=== PATIENT | male | born 2000 | race Hispanic/Latino ===

== ENCOUNTER → 2019-01-23 | Outpatient (CLI) | payer BC | END | disposition home or self-care (01) | LOC: RAH 10:26 | PROVIDERS: ATTEND Family Medicine | DX: K76.0 Fatty (change of) liver, not elsewhere classified (principal) | CPT/HCPCS: 76700 ==

== ENCOUNTER 2025-10-18 23:25 | Emergency (ER) | payer BC ==
[~2025-10-18] VITALS: Ht 180.3 cm; Wt 99.8 kg
--- NOTE | 2025-10-18 23:52 | ERN ---
General Chief Complaint: Palpitations Stated Complaint: PALPITATIONS Time Seen by MD: 23:28 History of Present Illness Initial Comments 25-year-old male no past medical history here for evaluation of palpitations. Patient states he has a palpitation before in the past however it has self resolved. Today he noticed that he is having worsening palpitations at rest right before he was going to bed thus he decided to come to the emergency room for evaluation. Patient denies any recent caffeine use. 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 Denies any recent alcohol or drug use. Allergies: Coded Allergies: Penicillins (Unverified Allergy, Unknown, 10/18/25) Past Medical History Past Medical History: No Pertinent History Past Surgical History: None Cardiovascular: (+) palpitations; (-) chest pain Review of Systems: was completed, & the rest were negative. Physical Exam Physical Exam Dictation GENERAL APPEARANCE NAD, activity normal for age, well developed/ well nourished, no cyanosis, pallor, or diaphoresis. EYES lids/conjunctiva normal. EARS/NOSE/THROAT Mucous membranes moist, nares normal, lips/teeth normal uvula midline without oral pharyngeal erythema, exudate or swelling TMs normal bilaterally. No lymphangitis/lymphedema. HEAD/NECK normocephalic atraumatic, no facial trauma, neck is supple. RESPIRATORY respiratory effort normal, speaks in full sentences, no tripod position, no accessory muscle use. Lungs clear to auscultation without rhonchi, wheezes, rales CARDIAC tachycardic rate and rhythm, no edema. ABDOMINAL Soft, ND/NT. No evidence of fluid wave. No pulsatile masses on exam, rebound tenderness, Ramirez sign or pain over Mcburney's point. MUSCLES/EXTREMITIES No abnormal range of motion, no swelling. SKIN Warm, pink and dry. No rashes, dermatoses, petechiae or lesions. NEUROLOGICAL Speech is clear and appropriate. Normal level of consciousness. Gait and coordination are normal. 5/5 strength in all extremities. PSYCH Normal mood and affect. Judgement/competence is appropriate Results Laboratory and Microbiology Lab and Micro Result Laboratory Tests Test 10/18/25 23:44 White Blood Count 8.6 K/uL (4.8-10.8) Red Blood Count 5.09 MIL/uL (4.50-6.20) Hemoglobin 14.0 g/dL (14.0-18.0) Hematocrit 41.9 % (42-54) L Mean Corpuscular Volume 82.3 fL (79-99) Mean Corpuscular Hemoglobin 27.5 pg (27.0-33.0) Mean Corpuscular Hemoglobin Concent 33.4 g/dL (32.0-36.0) Red Cell Distribution Width 12.5 % (11.0-15.5) Platelet Count 257 K/uL (130-400) Mean Platelet Volume 9.8 fL (7.5-10.5) Immature Granulocyte % (Auto) 0.3 % (0-1) Neutrophils (%) (Auto) 41.9 % (40.0-77.0) Lymphocytes (%) (Auto) 49.0 % (21.0-51.0) Monocytes (%) (Auto) 6.5 % (3.0-13.0) Eosinophils (%) (Auto) 2.1 % (0.0-8.0) Basophils (%) (Auto) 0.2 % (0.0-5.0) Neutrophils # (Auto) 3.6 K/uL (1.8-7.7) Lymphocytes # (Auto) 4.2 K/uL (1.0-4.8) Monocytes # (Auto) 0.6 K/uL (0.1-1.0) Eosinophils # (Auto) 0.18 K/uL (0.00-0.70) Basophils # (Auto) 0.02 K/uL (0.00-0.20) Absolute Immature Granulocyte (auto 0.03 K/uL (0-1) Nucleated Red Blood Cells 0.0 % (0.0-0.19) Sodium Level 140 mmol/L (136-145) Potassium Level 3.8 mmol/L (3.5-5.1) Chloride Level 104 mmol/L (101-111) Carbon Dioxide Level 26 mmol/L (21-32) Blood Urea Nitrogen 14 mg/dL (7-18) Creatinine 1.0 mg/dL (0.5-1.3) Glomerular Filtration Rate Calc 106 mL/min (>90) Random Glucose 110 mg/dL (70-105) H Total Calcium 8.6 mg/dL (8.5-10.1) Troponin I High Sensitivity 5 ng/L (4-75) Urine Opiates Screen NEGATIVE (NEGATIVE) Urine Barbiturates Screen NEGATIVE (NEGATIVE) Urine Phencyclidine Screen NEGATIVE (NEGATIVE) Urine Amphetamines Screen NEGATIVE (NEGATIVE) Urine Benzodiazepines Screen NEGATIVE (NEGATIVE) Urine Cocaine Screen NEGATIVE (NEGATIVE) Urine Marijuana (THC) Screen NEGATIVE (NEGATIVE) MDM 25-year-old male here for evaluation of palpitations. This is likely secondary to anxiety. However we will get a cardiac workup and reassess. Disposition pending results of labs and imaging. ED Course Orders Procedure Category Date Status Time 12 Lead Ekg Tracing- EKG 10/18/25 Logged Technical 23:28 Basic Metabolic Panel LAB 10/18/25 Complete 23:28 Drug Screen Urine LAB 10/18/25 Complete 23:28 Cbc With Differential LAB 10/18/25 Complete 23:28 Troponin I High LAB 10/18/25 Complete Sensitivity 23:28 Chest 1vw RAD 10/18/25 Resulted 23:28 Vital Signs Date Time Temp Pulse Resp B/P (MAP) Pulse Ox O2 Delivery O2 Flow Rate FiO2 10/19/25 01:35 98.4 98 20 126/80 99 Room Air* 0 21 10/18/25 23:45 98.4 106 18 124/75 98 Room Air* 0 21 10/18/25 23:27 98.1 102 18 172/93 98 Room Air 0 DX & DISP Disposition: Discharge Departure Impression: Primary Impression: Palpitations Condition: Stable Referrals: MARCIAL PAINTER DO (PCP) GALEN HERBERT MD Oct 18, 2025 23:52
[2025-10-18 23:54] LABS: IMMATURE GRANULOCYTE ABSOLUTE 0.03 K/uL (0-1); NUCLEATED RED BLOOD CELLS 0.0 % (0.0-0.19); PLATELET COUNT (AUTO) 257 K/uL (130-400); RED BLOOD CELL COUNT(AUTO) 5.09 MIL/uL (4.50-6.20); RED CELL DISTRIBUTION WIDTH 12.5 % (11.0-15.5); WHITE BLOOD COUNT (AUTO) 8.6 K/uL (4.8-10.8)
[2025-10-19 00:02] LABS: CREATININE 1.0 mg/dL (0.5-1.3); GLOMERULAR FILTR. RATE CALC 106.0 mL/min (>90); GLUCOSE,RANDOM 110.0 mg/dL (70-105); SODIUM SERUM 140.0 mmol/L (136-145); UREA NITROGEN, BLOOD 14.0 mg/dL (7-18)
[2025-10-19 00:42] LABS: AMPHET/METH SCREEN,URINE NEGATIVE (NEGATIVE); BARBITURATE SCREEN, URINE NEGATIVE (NEGATIVE); CANNABINOID SCREEN,URINE NEGATIVE (NEGATIVE); COCAINE SCREEN,URINE NEGATIVE (NEGATIVE)
--- NOTE | 2025-10-19 01:48 | HMCIMG ---
EXAM: CR Chest, 1 View. CLINICAL HISTORY: palpitaitons COMPARISON: None provided. FINDINGS: LUNGS: The lungs show no infiltrate or other acute finding. PLEURAL SPACES: No pleural effusion or pneumothorax. MEDIASTINUM: Cardiac size and mediastinal contours are within normal limits. BONES: No aggressive appearing osseous lesion seen. IMPRESSION: No acute cardiopulmonary pathology is evident. /[place]
[2025-10-19 02:38] VITALS: BP 122/70; PULSE 92; RESP 16; TEMP 98.4; O2SAT 97
--- NOTE | 2025-10-19 10:31 | EKG ---
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
== END 2025-10-19 02:40 | disposition home or self-care (01) ==
LOC: EDH 23:25
DX: R00.2 Palpitations (principal); Z88.0 Allergy status to penicillin
CPT/HCPCS: 36415; 71045; 80048; 80305; 84484; 85025; 93005; 99284